=== PATIENT | female | born 1960 | race Caucasian/White ===

== ENCOUNTER → 2019-02-09 16:27 | Outpatient (CLI) | payer OTHER, MEDICAID, SELFPAY ==
[2019-02-09 17:39] LABS: BUN Creatinine Ratio 16.3 (6-22); Blood Urea Nitrogen 13 mg/dL (7-17); Calcium 9.7 mg/dL (8.4-10.2); Carbon Dioxide 29 mmol/L (22-32); Chloride 108 mmol/L (98-107); Estimated Glomerular Filt Rate > 60.0 mL/min (>60); Glucose 78 mg/dL (80-110); HEMOLYSIS < 15 (0-50); Potassium 4.5 mmol/L (3.4-5.1); Sodium 143 mmol/L (137-145)
== END ==
PROVIDERS: Visit Provider Physician Assistant Medical
DX: R74.8 Abnormal levels of other serum enzymes (principal); R10.13 Epigastric pain
CPT/HCPCS: 36415; 80048

== ENCOUNTER → 2019-12-14 09:45 | Outpatient (CLI) | payer OTHER, MEDICAID, SELFPAY ==
--- NOTE | 2019-12-14 | DI.US.S_ITS ---
ULTRASOUND OF RIGHT BREAST AND AXILLA: 12/14/2019 CLINICAL: Patient returns today to evaluate a focal asymmetry in the right breast. Comparison is made to exam dated: 12/14/2019 [facility]. Color flow and real-time ultrasound of the right breast axilla were performed. Fine scale images of the real-time examination were reviewed. There is a 0.8 cm x 1.1 cm x 0.4 cm oval mass with a few angular margins in the right breast at 12 o'clock anterior depth. This oval mass is hypoechoic. This likely correlates with mammography findings. No significant abnormalities were seen sonographically in the right axilla. IMPRESSION: SUSPICIOUS OF MALIGNANCY The 0.8 cm x 1.1 cm x 0.4 cm oval mass in the right breast is at a low suspicion for malignancy. An ultrasound guided biopsy is recommended. Findings and biopsy recommendations were discussed with the patient by Dr. Welch during today's visit. This exam was interpreted at Station ID: [id number]. Electronically Signed By: Ady Chen M.D. at/:12/14/2019 18:28:05 letter sent: Biopsy Required Ultrasound BI-RADS: 4a Low suspicion for malignancy
--- NOTE | 2019-12-14 | DI.MG.S_ITS ---
BILATERAL DIGITAL DIAGNOSTIC MAMMOGRAM 3D/2D: 12/14/2019 CLINICAL: Baseline exam. Breast lump. No prior exams were available for comparison. The tissue of both breasts is predominantly fatty. There is a 0.7 cm irregular equal density focal asymmetry in the right breast at 12 o'clock anterior depth. There is in close proximity to post-surgical scar. There is a 0.7 cm irregular equal density mass with coarse calcifications in the left breast at 12 o'clock middle depth. There also is a 0.7 cm oval focal asymmetry in the left breast at 7 o'clock anterior depth. There are multiple intramammary lymph nodes bilaterally. No other significant masses or calcifications are seen in either breast. IMPRESSION: INCOMPLETE: NEEDS ADDITIONAL IMAGING EVALUATION The 0.7 cm irregular equal density focal asymmetry in the right breast at 12 o'clock anterior depth is indeterminate. An ultrasound is recommended for further evaluation and is scheduled to immediately follow this study. The 0.7 cm irregular equal density mass in the left breast at 12 o'clock middle depth is indeterminate. An ultrasound is recommended for further evaluation and is scheduled to immediately follow this study. The 0.7 cm oval focal asymmetry in the left breast at 7 o'clock anterior depth resembles a cyst, a lymph node, or a fibroadenoma and is indeterminate. An ultrasound is recommended for further evaluation and is scheduled to immediately follow this study. There is no abnormality seen in either breast to correspond with the diffuse intermittent breast pain, however, clinical followup is recommended for persistent or worsening symptoms. This exam was interpreted at Station ID: [id number]. NOTE: For mammograms, a report in lay terms will be sent to the patient. Approximately 15% of breast malignancies will not be visualized mammographically. In the management of a palpable breast mass, a negative mammogram must not discourage biopsy of a clinically suspicious lesion. Electronically Signed By: Ady Chen M.D. aty/:12/14/2019 18:24:51 ACR BI-RADS Category 0: Incomplete [id number]
--- NOTE | 2019-12-14 | DI.US.S_ITS ---
ULTRASOUND OF LEFT BREAST AND AXILLA: 12/14/2019 CLINICAL: Patient returns today to evaluate 2 focal asymmetries in the left breast. Comparison is made to exam dated: 12/14/2019 [facility]. Color flow and real-time ultrasound of the left breast axilla were performed. Fine scale images of the real-time examination were reviewed. There is a 1.1 cm x 0.5 cm x 1 cm wider than tall oval mass with an indistinct a few angular margins in the left breast at 12:30 o'clock middle depth 4 cm from the nipple. This oval mass is hypoechoic. This correlates with mammography findings. There are related calcifications. Color flow imaging demonstrates that there is an adjacent vascularity. There also is a 0.5 cm x 0.6 cm x 0.6 cm wider than tall irregular mass with a few angular margins in the left breast at 9 o'clock anterior depth 4 cm from the nipple. This irregular mass is hypoechoic with posterior acoustic enhancement. Color flow imaging demonstrates that there is no vascularity present. No significant abnormalities were seen sonographically in the left axilla. IMPRESSION: SUSPICIOUS OF MALIGNANCY The 1.1 cm x 0.5 cm x 1 cm wider than tall oval mass in the left breast at 12:30 o'clock middle depth is at a low suspicion for malignancy. An ultrasound guided biopsy is recommended. The 0.5 cm x 0.6 cm x 0.6 cm wider than tall irregular mass in the left breast at 9 o'clock anterior depth is at a low suspicion for malignancy. An ultrasound guided biopsy is recommended. Findings and biopsy recommendations were discussed with the patient by Dr. Welch during today's visit. This exam was interpreted at Station ID: [id number]. Electronically Signed By: Ady Chen M.D. aty/:12/14/2019 18:34:15 letter sent: Biopsy Required Ultrasound BI-RADS: 4a Low suspicion for malignancy
== END ==
PROVIDERS: Referring Provider Physician Assistant Medical; Visit Provider Physician Assistant Medical
DX: R92.8 Other abnormal and inconclusive findings on diagnostic imaging of breast (principal); R92.1 Mammographic calcification found on diagnostic imaging of breast; N63.21 Unspecified lump in the left breast, upper outer quadrant; N63.25 Unspecified lump in the left breast, overlapping quadrants; N63.15 Unspecified lump in the right breast, overlapping quadrants
CPT/HCPCS: 76642; 77066; G0279

== ENCOUNTER → 2020-01-15 11:41 | Outpatient (CLI) | payer OTHER, MEDICAID, SELFPAY ==
--- NOTE | 2020-01-15 | PATH_ITS ---
[facility] Accession Number: [id number] . 01 Material submitted: . PART A: breast - LEFT BREAST MASS 12:30 4 CM FN PART B: breast - LEFT BREAST MASS 9:00 4 CM FN . 02 Diagnosis: A. Left Breast Mass At 12:30, 4 CM From Nipple, Needle Core Biopsy: Benign breast parenchyma with features of fibrocystic change consisting of cystic dilatation of terminal ductules, apocrine metaplasia, ductal hyperplasia without atypia, and patchy stromal fibrosis. Several medium-sized vessels are also present. Negative for atypical glandular hyperplasia, in-situ, or invasive carcinoma. . B. Left Breast Mass At 9 O'Clock, 4 CM From Nipple: Benign breast parenchyma with features of fibrocystic change consisting of cystic dilatation of terminal ductules, apocrine metaplasia, ductal hyperplasia without atypia, and patchy stromal fibrosis. Some tissue fragments demonstrate cyst lining. Negative for atypical glandular hyperplasia, in-situ, or invasive carcinoma. [facility] 01/17/2020 1331 Local . 02 Comment: QA performed by Dr. Posadas. . 02 Electronically signed: . Jocelyn Shelby MD, Pathologist NPI- [id number] . 01 Gross description: . Received two formalin-filled containers, both labeled with the patient's name: . A. In a container labeled #1, designated left breast mass 12:30, 4 cm FN. The specimen is received with a plastic filter in container, sample loose in container and consists of multiple light yellow-arriaga portions of soft tissue which range in size from less than 0.1 cm to 0.5 x 0.3 x 0.2 cm. The specimen is entirely submitted in cassette A. B. In a container labeled #2, designated left breast mass 9:00, 4 cm FM. The specimen is received with a plastic filter in container, sample loose in container and consists of three portions of light yellow-arriaga soft tissue which range in size from 0.2 x 0.2 x 0.2 cm to 1.3 x 0.4 x 0.3 cm. The specimen is entirely submitted in cassette B. . No collection date or time per containers. Possible collection date and time per requisition: 01/15/20 at 1447. Total fixation time: Approximately 12 hours. (DC:[facility] [id number]) /[facility] 01/16/2020 0223 Local . 02 Pathologist provided ICD-10: N60.12, N60.12 . 02 CPT . 602125, [id number] Performed at: 01 [facility] [address] [id number] MD Rik Molina MD Phone: [phone] Performed at: 02 [facility] [address] [place], [place] [id number] MD Cally Posadas MD Phone: [phone]
--- NOTE | 2020-01-15 | DI.US.S_ITS ---
ULTRASOUND GUIDED BIOPSY RIGHT BREAST WITH MARKING DEVICE INSERTED: 01/15/2020 CLINICAL: Right breast mass. PATIENT CONSENT: Risks (minor bleeding, infection, vasovagal reaction and repeat procedure), benefits and alternatives were explained to the patient and written informed consent was obtained. Correlation is made to exams dated: 12/14/2019 ultrasound and 12/14/2019 mammogram [facility]. An ultrasound guided biopsy using real-time ultrasound was performed for the irregular shaped mass located in the right breast at 12 o'clock middle depth. The skin was prepped in the usual manner. Local anesthetic was administered to the access site. The abnormality was approached from the lateral aspect. A biopsy needle was placed adjacent to the abnormality under ultrasound guidance. Once the needle was documented to be in the correct location, a specimen was obtained using an automated biopsy gun. A clip was inserted into the biopsy cavity. The specimen was sent to the laboratory for pathological analysis. IMPRESSION: ULTRASOUND GUIDED BIOPSY BENIGN Ultrasound guided biopsy of the mass in the right breast at 12 o'clock middle depth was successful. Pathology indicates benign adenosis (AD), apocrine metaplasia (AM), fibrocystic changes (FC), cystic dilatation of ductules, and stromal fibrosis. Pathology results are concordant with imaging findings. Return to annual mammogram screening schedule is recommended. This exam was interpreted at Station ID: [id number]. Marcell de la garza,aty/:01/21/2020 17:46:48
--- NOTE | 2020-01-15 | DI.US.S_ITS ---
MULTIPLE ULTRASOUND GUIDED BIOPSIES LEFT BREAST USING VACUUM DEVICE WITH MARKING DEVICES INSERTED: 01/15/2020 CLINICAL: Left breast mass x 2. PATIENT CONSENT: Risks (minor bleeding, infection, vasovagal reaction and repeat procedure), benefits and alternatives were explained to the patient and written informed consent was obtained. Correlation is made to exams dated: 12/14/2019 ultrasound and 12/14/2019 [facility]ogram [facility]. An ultrasound guided biopsy using real-time ultrasound was performed for the mass located in the left breast at 12 o'clock middle depth. The skin was prepped in the usual manner. Local anesthetic was administered to the access site. A small incision was made in the breast. The abnormality was approached from the lateral aspect. A biopsy needle was placed adjacent to the abnormality under ultrasound guidance. Once the needle was documented to be in the correct location, a specimen was obtained using the Mammotome biopsy system. A Vision clip was inserted into the biopsy cavity. The specimen was sent to the laboratory for pathological analysis. A second ultrasound guided biopsy using real-time ultrasound was performed for the cystic mass located in the left breast at 9 o'clock posterior depth. The skin was prepped in the usual manner. Local anesthetic was administered to the access site. The abnormality was approached from the lateral aspect. A biopsy needle was placed adjacent to the abnormality under ultrasound guidance. Once the needle was documented to be in the correct location, a specimen was obtained using the Mammotome biopsy system. A Celero clip was inserted into the biopsy cavity. The specimen was sent to the laboratory for pathological analysis. IMPRESSION: ULTRASOUND GUIDED BIOPSY BENIGN Ultrasound guided biopsy of the mass in the left breast at 12 o'clock middle depth was successful. Pathology indicates benign apocrine metaplasia (AM), usual ductal hyperplasia (DHU), fibrocystic changes (FC), stromal fibrosis, and cystic dilatation of ductules. Pathology results are concordant with imaging findings. Ultrasound guided biopsy of the cystic mass in the left breast at 9 o'clock posterior depth was successful. Pathology indicates benign apocrine metaplasia (AM), usual ductal hyperplasia (DHU), fibrocystic changes (FC), cystic dilatation of ductules, and stromal fibrosis. Pathology results are concordant with imaging findings. Return to annual mammogram screening schedule is recommended. This exam was interpreted at Station ID: [id number]. Marcell de la garza,aty/:01/21/2020 17:44:55
--- NOTE | 2020-01-15 | DI.MG.S_ITS ---
BILATERAL DIGITAL DIAGNOSTIC MAMMOGRAM POST-NEEDLE BIOPSY: 01/15/2020 CLINICAL: Bilateral breast lumps. Comparison is made to exams dated: 12/14/2019 ultrasound, 12/14/2019 ultrasound, and 12/14/2019 mammogram - [facility]. The tissue of both breasts is predominantly fatty. There is a marker clip in the appropriate position in the right breast at 12 o'clock anterior depth. This marker clip placement is at the biopsy site. There is a marker clip in the appropriate position in the left breast at 12 o'clock anterior depth. This marker clip placement is at the biopsy site. There also is a marker clip in the appropriate position in the left breast at 9 o'clock anterior depth. This marker clip placement is at the biopsy site. IMPRESSION: POST PROCEDURE MAMMOGRAM FOR MARKER PLACEMENT There was a successful marker clip placement in the right breast at 12 o'clock anterior depth. There was a successful marker clip placement in the left breast at 12 o'clock anterior depth. There was a successful marker clip placement in the left breast at 9 o'clock anterior depth. This exam was interpreted at Station ID: [id number]. NOTE: For mammograms, a report in lay terms will be sent to the patient. Approximately 15% of breast malignancies will not be visualized mammographically. In the management of a palpable breast mass, a negative mammogram must not discourage biopsy of a clinically suspicious lesion. Electronically Signed By: Marcell de la garza/:01/17/2020 09:19:18 ACR BI-RADS Category Post-procedure mammogram for marker placement
--- NOTE | 2020-01-15 | PATH_ITS ---
[facility] Accession Number: [id number] . 01 Material submitted: . breast - RIGHT BREAST MASS 12:00 RETROAREOLAR . 01 Clinical history: . BILAT BREAST LUMPS . 02 Diagnosis: Right Breast Mass At 12 O'Clock, Retroareolar, Needle Core Biopsy: Benign breast parenchyma with features of fibrocystic change including ductal hyperplasia without atypia, apocrine metaplasia, stromal fibrosis, cystic dilatation of terminal ductules, and adenosis. Negative for in-situ or invasive carcinoma. [facility] 01/18/2020 1504 Local . 02 Comment: As part of routine quality control tech raw materials, this case has been reviewed by Dr. Posadas, who agrees with the diagnosis. . 02 Electronically signed: . Jocelyn Shelby MD, Pathologist NPI- [id number] . 01 Gross description: . Received one formalin-filled container, labeled with the patient's name and designated right breast mass 12 o'clock retroareolar. The specimen is received with a plastic filter in container, sample loose in container and consists of multiple light yellow portions of soft tissue which range in size from 0.3 x 0.3 x 0.2 cm to 1.5 x 0.4 x 0.4 cm. The specimen is entirely submitted in one cassette. No collection date or time per container. Possible date and time per requisition: 01/15/20 at 1447. Total fixation time: Approximately 12 hours. ([id number]) /[facility] 01/16/2020 0216 Local . 02 Microscopic: . An immunohistochemical stain for p63 is performed on block A1 to evaluate for block reactivity and is positive in regions of interest. The control stained with appropriate reactivity. . An immunohistochemical stain for myosin is performed on block A1 to evaluate for block reactivity and is positive in regions of interest. The control stained with appropriate reactivity. . The presence of both p63 and smooth muscle myosin in the regions of interest mitigates against the presence of invasive carcinoma at this focus. . * This test was developed and its performance characteristics determined by [facility]. It has not been cleared or approved by the U.S. Food and Drug Administration. The FDA has determined that such clearance or approval is not necessary. This test is used for clinical purposes. It should not be regarded as investigational or for research. . . . . 02 Pathologist provided ICD-10: N60.11 . 02 CPT . 980201, Q20644, [id number] Performed at: 01 [facility] [address] [facility], [place], [place] [id number] MD Rik Molina MD Phone: [phone] Performed at: 02 [facility] [address] [place], [place] [id number] MD Cally Posadas MD Phone: [phone]
== END ==
PROVIDERS: Referring Provider Physician Assistant Medical; Visit Provider Physician Assistant Medical
DX: N60.21 Fibroadenosis of right breast (principal); N60.82 Other benign mammary dysplasias of left breast; N60.81 Other benign mammary dysplasias of right breast; N60.32 Fibrosclerosis of left breast; N60.31 Fibrosclerosis of right breast
CPT/HCPCS: 19083; 19084; 77066

== ENCOUNTER → 2021-01-08 14:33 | Outpatient (CLI) | payer OTHER, MEDICAID, SELFPAY ==
--- NOTE | 2021-01-08 | DI.CT.S_ITS ---
PROCEDURE: CT ABDOMEN PELVIS W CON INDICATIONS: unspecified abdominal pain TECHNIQUE: After the administration of oral and intravenous contrast, 5 mm thick sections acquired from the diaphragms to the symphysis. 5 mm thick coronal and sagittal reformats were performed. For radiation dose reduction, the following was used: automated exposure control, adjustment of mA and/or kV according to patient size. COMPARISON: None. FINDINGS: Image quality: Excellent. ABDOMEN: Lung bases: Lung bases are clear. Heart size is normal. Solid organs: Liver is normal in size and enhancement. Gallbladder is surgically absent. Biliary system is non-dilated. Pancreas enhances normally. Spleen is normal in size and enhancement. Subcentimeter heterogeneous low-density nodule arising from the medial limb of the left adrenal gland, 9 mm in diameter. Kidneys are normal in size and enhancement, without hydronephrosis. Peritoneum and bowel: Numerous diverticula in the distal descending and sigmoid colon with mild circumferential wall thickening. There is no acute pericolonic inflammation. A few of these diverticula are impacted with high-density material. Normal appendix. Stomach, small bowel, and colon loops are otherwise normal in caliber and wall thickness. No free fluid or air. Nodes and vessels: No retroperitoneal or mesenteric adenopathy. Aorta and inferior vena cava are normal in caliber. Mild abdominal aortic atherosclerotic calcification. Miscellaneous: No ventral hernias. PELVIS: Genitourinary: Bladder wall thickness is normal. The uterus is absent. Miscellaneous: No inguinal hernias or adenopathy. Bones: No suspicious bony lesions. No vertebral body compression fractures. Lumbar spine disc and facet degeneration. IMPRESSION: 1. Changes of chronic recurrent distal descending and sigmoid diverticulitis without acute diverticulitis present. 2. Subcentimeter left adrenal nodule too small to characterize, likely an adenoma. 1 year follow-up is recommended. 3. Cholecystectomy and hysterectomy. Dictated by: Lilia Bolton M.D. on 01/09/2021 at 9:00 Approved by: Lilia Bolton M.D. on 01/09/2021 at 9:16
[2021-01-08 15:49] LABS: BUN Creatinine Ratio 30.5 (6-22); Blood Urea Nitrogen 29 mg/dL (7-17); Calcium 9.4 mg/dL (8.4-10.2); Carbon Dioxide 28 mmol/L (22-32); Chloride 106 mmol/L (98-107); Estimated Glomerular Filt Rate 59.6 mL/min (>60); Glucose 92 mg/dL (80-110); HEMOLYSIS < 15 (0-50); Potassium 4.6 mmol/L (3.4-5.1); Sodium 140 mmol/L (137-145)
== END ==
PROVIDERS: PCP Family Medicine; Referring Provider Physician Assistant Medical; Visit Provider Physician Assistant Medical
DX: R10.9 Unspecified abdominal pain (principal); R30.0 Dysuria; K57.32 Diverticulitis of large intestine without perforation or abscess without bleeding; E27.9 Disorder of adrenal gland, unspecified; Z90.49 Acquired absence of other specified parts of digestive tract; Z90.710 Acquired absence of both cervix and uterus
CPT/HCPCS: 36415; 74177; 80048

== ENCOUNTER 2021-05-07 16:02 | Emergency (ER) | payer OTHER, MEDICAID, SELFPAY ==
[2021-05-07 16:08] VITALS: BP 108/63; PULSE 96; RESP 14; TEMP 36.4; O2SAT 97; BMI 23.1
--- NOTE | 2021-05-07 18:11 | ED.SKABFB ---
HPI - Skin/Abscess/Foreign Bdy <Luis Sainz PA-C - Last Filed: 05/07/21 18:41> General Chief complaint: Skin/Abscess/Foreign Body Stated complaint: Stabbed With Oxi Tank, Left Leg Time Seen by Provider: 05/07/21 16:14 Source: patient Mode of arrival: Ambulatory Limitations: no limitations History of Present Illness HPI narrative: Jennifer presents today with chief complaint of wound to her left calf that she sustained 1 week ago. She was at work when an oxygen tank fell over and stabbed into her left leg. She went to the emergency department the following day and was bandaged. She was put on some antibiotics 2 days later and has been taking them as prescribed. She denies any significant spreading redness, fever, difficulty walking or any other acute concerns or complaints at this time. She is here for wound check. Related Data Previous Rx's Medication Instructions Recorded tramadol 50 mg tablet 50 mg PO Q6HP PRN #20 tab 09/15/17 Allergies Allergy/AdvReac Type Severity Reaction Status Date / Time codeine [CODEINE] Allergy Unknown Verified 05/07/21 16:10 Sulfa (Sulfonamide Allergy Unknown Verified 05/07/21 16:10 Antibiotics) [SULFA (SULFONAMIDE ANTIBIOTICS)] Review of Systems <Luis Sainz PA-C - Last Filed: 05/07/21 18:41> Review of Systems Narrative: As per HPI Patient History <Luis Sainz PA-C - Last Filed: 05/07/21 18:41> Social History Smoking Status: Current every day smoker Smoking Status: Current every day smoker alcohol intake frequency: other Substance Use Type: does not use Exam <Luis Sainz PA-C - Last Filed: 05/07/21 18:41> Narrative Exam Narrative: Exam Narrative: Const General: cooperative, healthy appearing, comfortable, no acute distress, well developed and well groomed Nutritional Appearance: average body habitus Orientation: alert and oriented x3 HENMT Head: normal to inspection and atraumatic Ears: hearing grossly normal bilaterally Nose: external nose normal and nares normal Face and sinus: normal facial exam Neck Neck: normal visual inspection and supple Resp Effort & Inspection: normal respiratory effort, able to speak in complete sentences, no audible wheezes, not labored, no nasal flaring and no respiratory distress Skin Scab noted with surrounding bruising to left lateral calf. No significant surrounding tenderness with palpation. No discharge noted. No significant erythema or warmth. No bony tenderness noted. Neuro General: alert, oriented x3, gait normal, tone normal and moves all extremities Cognition: normal cognition Speech: speech normal Gait: normal gait Psych Appearance: grossly normal and well kempt Mental Status: mental status grossly normal Speech and Movement: speech and movement normal Mood: congruent mood Affect: normal affect Initial Vital Signs Initial Vital Signs: Vital Signs Temperature 97.5 F L 05/07/21 16:08 Pulse Rate 96 H 05/07/21 16:08 Respiratory Rate 14 05/07/21 16:08 Blood Pressure 108/63 05/07/21 16:08 Pulse Oximetry 97 05/07/21 16:08 <Guille Little DO - Last Filed: 05/08/21 04:24> Initial Vital Signs Initial Vital Signs: Vital Signs Temperature 97.5 F L 05/07/21 16:08 Pulse Rate 96 H 05/07/21 16:08 Respiratory Rate 14 05/07/21 16:08 Blood Pressure 108/63 05/07/21 16:08 Pulse Oximetry 97 05/07/21 16:08 Course <Luis Sainz PA-C - Last Filed: 05/07/21 18:41> Vital Signs Vital signs: Vital Signs - 8 hr 05/07/21 16:08 Temperature 97.5 F L Pulse Rate 96 H Respiratory Rate 14 Blood Pressure 108/63 Pulse Oximetry 97 <Guille Little DO - Last Filed: 05/08/21 04:24> Vital Signs Vital signs: Vital Signs - 8 hr 05/07/21 16:08 Temperature 97.5 F L Pulse Rate 96 H Respiratory Rate 14 Blood Pressure 108/63 Pulse Oximetry 97 Discharge Plan Departure Patient Disposition: Home Clinical Impression: Puncture wound of left lower leg Qualifiers: Encounter type: subsequent encounter Qualified Code(s): S81.832D - Puncture wound without foreign body, left lower leg, subsequent encounter Instructions: DI for Wound Infection Activity Restrictions/Additional Instructions: Wound appears to be healing well at this time. Recommend continuing antibiotics as instructed. Please follow-up with your PCP if you continue to have discomfort in this area. If you notice fever, spreading redness, significant increased pain, or have any other acute concerns or complaints please return for re-evaluation. Thank you Luis Sainz PA-C Prescriptions: No Action tramadol 50 MG tablet 50 mg PO Q6HP PRNQty: 20 RF: 0 Referrals: Garett An MD [Primary Care Provider] - Stand Alone Forms: Work Release Note <Guille Little DO - Last Filed: 05/08/21 04:24> Cosign ED Attending Dustinature Attestation: I was immediately available in the department for consultation. This documentation has been reviewed and I agree with assessment and plan. Supervised by Guille Little DO
[2021-05-07 18:51] VITALS: BP 115/55; PULSE 87; O2SAT 97
== END 2021-05-07 18:56 | disposition home or self-care (01) ==
PROVIDERS: Emergency Provider Physician Assistant; PCP Family Medicine
DX: S81.832D Puncture wound without foreign body, left lower leg, subsequent encounter (principal); W26.8XXA Contact with other sharp object(s), not elsewhere classified, initial encounter; Y99.0 Civilian activity done for income or pay
CPT/HCPCS: 99281

== ENCOUNTER → 2022-02-03 14:07 | Outpatient (CLI) | payer OTHER, MEDICAID, SELFPAY ==
--- NOTE | 2022-02-03 14:11 | DI.MG.S_ITS ---
BILATERAL DIGITAL SCREENING MAMMOGRAM 3D/2D WITH CAD: 02/03/2022 CLINICAL: Routine screening. Family history of breast cancer. Comparison is made to exams dated: 01/15/2020 ultrasound biopsy, 01/15/2020 mammogram, and 12/14/2019 mammogram - [facility]. There are scattered fibroglandular elements in both breasts. Current study was also evaluated with a Computer Aided Detection (CAD) system. No significant masses, calcifications, or other findings are seen in either breast. There has been no significant interval change. IMPRESSION: NEGATIVE There is no mammographic evidence of malignancy. A 1 year screening mammogram is recommended. This exam was interpreted at Station ID: [id number]. NOTE: For mammograms, a report in lay terms will be sent to the patient. Approximately 15% of breast malignancies will not be visualized mammographically. In the management of a palpable breast mass, a negative mammogram must not discourage biopsy of a clinically suspicious lesion. Electronically Signed By: Isac Kwok M.D., [email or web address]:02/03/2022 14:28:40 letter sent: Normal Exam ACR BI-RADS Category 1: Negative 3341F
== END ==
PROVIDERS: PCP Family Medicine; Referring Provider Nurse Practitioner; Visit Provider Nurse Practitioner
DX: Z12.31 Encounter for screening mammogram for malignant neoplasm of breast (principal); Z80.3 Family history of malignant neoplasm of breast
CPT/HCPCS: 77063; 77067

== ENCOUNTER 2023-02-02 18:05 | Emergency (ER) | payer OTHER, MEDICAID, SELFPAY ==
[2023-02-02] VITALS (10 sets, daily range): BP systolic 85–114; BP diastolic 54–76; PULSE 73–86; RESP 16–29; TEMP 36.4; O2SAT 93–97; BMI 25.7
[2023-02-02 18:52] LABS: Add Manual Diff / Slide Review NO; Basophils Absolute Auto 100 /uL (0-100); Basophils Percent Auto 0.9 % (0-2); Eosinophils Absolute Auto 200 /uL (0-450); Eosinophils Percent Auto 2.5 % (2-4); Hematocrit 40.5 % (36-46); Hemoglobin 14.1 g/dL (12.0-16.0); Lymphocytes Absolute Auto 2500 /uL (1100-4500); Lymphocytes Percent Auto 33.3 % (25-40); Mean Corpuscular HGB Conc 34.9 % (30-36); Mean Corpuscular Hemoglobin 33.6 PG (26-34); Mean Corpuscular Volume 96.2 fL (80-100); Monocytes Absolute Auto 500 /uL (0-900); Monocytes Percent Auto 6.9 % (3-14); Neutrophils Absolute Auto 4300 /uL (1500-7000); Neutrophils Percent Auto 56.4 % (50-75); Platelet Count 197 X10^3/uL (150-400); Red Blood Cell Count 4.21 X10^6/uL (4.0-5.2); Red Cell Distribution Width 13.7 % (11.6-14.8); White Blood Cell Count 7.5 X10^3/uL (4.5-11.0)
--- NOTE | 2023-02-02 18:56 | ED_ITS ---
HPI - General Adult General Chief complaint: Abdominal Pain Stated complaint: abd bloating/cramps Time Seen by Provider: 02/02/23 18:52 Source: patient Mode of arrival: Ambulatory History of Present Illness HPI narrative: Patient is a 62-year-old female who has a known history of alcohol abuse. She states she now has been sober for the past couple months. She knows that she is had issues with her liver in the past. She states she is here because she is having abdominal bloating. She was told by her doctor that she may need to have fluid drained off of her abdomen. She states she is also having nausea and vomiting and diarrhea. This has been worsening over the past couple months. She is also having cramping in her hands and legs. Denies fevers. Related Data Previous Rx's Medication Instructions Recorded tramadol 50 mg tablet 50 mg PO Q6HP PRN #20 tabs 09/15/17 ciprofloxacin HCl 500 mg tablet 500 mg PO BID 10 days #20 tabs 02/02/23 (Cipro) metronidazole 500 mg tablet 500 mg PO TID 10 days #30 tabs 02/02/23 Allergies Allergy/AdvReac Type Severity Reaction Status Date / Time codeine [CODEINE] Allergy Unknown Verified 05/07/21 16:10 Sulfa (Sulfonamide Allergy Unknown Verified 05/07/21 16:10 Antibiotics) [SULFA (SULFONAMIDE ANTIBIOTICS)] Review of Systems Review of Systems ROS Unobtainable: All systems reviewed & are unremarkable except as noted in HPI and below Patient History Social History Smoking Status: Current every day smoker Smoking Status: Current every day smoker alcohol intake frequency: other Substance Use Type: does not use Exam Initial Vital Signs Initial Vital Signs: Vital Signs Temperature 97.5 F L 02/02/23 18:07 Pulse Rate 86 02/02/23 18:07 Respiratory Rate 16 02/02/23 18:07 Blood Pressure 114/68 02/02/23 18:07 Pulse Oximetry 94 02/02/23 18:07 Oxygen Delivery Method Room Air 02/02/23 18:07 Const General: cooperative and comfortable HENMT Head: normal to inspection and normocephalic Resp Effort & Inspection: normal respiratory effort Auscultation: clear to auscultation bilaterally Cardio Rate: regular rate Rhythm: regular rhythm GI Inspection: normal to inspection and non-distended Palpation: No firm, No guarding, No rigid and tender Skin General: no rashes or lesions noted Neuro General: patient alert, patient awake and moves all extremities Extrem General: normal to inspection and capillary refill normal Course Orders Ordered: ED Orders 02/02/23 18:57 CT abdomen pelvis w con Stat 02/02/23 19:04 EKG-12 Lead Stat Discontinued Medications Hydrocodone Bitart/Acetaminophen (Hydrocodone/Acet 5/325 Tablet) 1 tab PO NOW ONE Stop: 02/02/23 20:05 Last Admin: 02/02/23 20:14 Dose: 1 tab Documented By: Hydrocodone Bitart/Acetaminophen (Hydrocodone/Acet 5/325 Prepack) 1 bottle MISC SEEINSTR ONE Stop: 02/02/23 20:52 Last Admin: 02/02/23 21:10 Dose: 1 bottle Documented By: Ciprofloxacin (Ciprofloxacin 250 Mg Tablet) 500 mg PO NOW ONE Stop: 02/02/23 20:52 Last Admin: 02/02/23 21:10 Dose: 500 mg Documented By: Sodium Chloride (Normal Saline 0.9%) 1,000 mls @ 1,000 mls/hr IV BOLUS ONE Stop: 02/02/23 20:11 Last Infusion: 02/02/23 20:20 Dose: 0 mls/hr Documented By: Admin: 02/02/23 19:53 Dose: 1,000 mls/hr Documented By: Metronidazole (Metronidazole 500 Mg Tablet) 500 mg PO NOW ONE Stop: 02/02/23 20:52 Last Admin: 02/02/23 21:09 Dose: 500 mg Documented By: Ondansetron HCl (Ondansetron 4 Mg Odt) 4 mg PO NOW PRN PRN Reason: Nausea And Vomiting Ondansetron HCl (Ondansetron 4 Mg/2 Ml Inj) 4 mg IV NOW PRN PRN Reason: Nausea And Vomiting Ondansetron HCl (Ondansetron 4 Mg Odt Prepack) 1 bottle MISC SEEINSTR ONE Stop: 02/02/23 20:52 Last Admin: 02/02/23 21:10 Dose: 1 bottle Documented By: Vital Signs Vital signs: Vital Signs - 8 hr 02/02/23 20:00 02/02/23 20:30 02/02/23 21:00 Pulse Rate 75 73 73 Respiratory Rate 20 19 29 H Blood Pressure Pulse Oximetry 97 97 96 Oxygen Delivery Method 02/02/23 21:10 02/02/23 21:10 02/02/23 21:24 Pulse Rate 76 Respiratory Rate 24 Blood Pressure 97/76 Pulse Oximetry 96 Oxygen Delivery Method Room Air Medical Decision Making Lab Data Lab results reviewed: Yes I reviewed the patient's lab results. 02/02/23 18:39 02/02/23 18:39 Labs: Lab Results 02/02/23 02/02/23 02/02/23 Range/Units 18:39 18:39 18:46 WBC 7.5 (4.5-11.0) X10^3/uL RBC 4.21 (4.0-5.2) X10^6/uL Hgb 14.1 (12.0-16.0) g/dL Hct 40.5 (36-46) % MCV 96.2 (80-100) fL MCH 33.6 (26-34) PG MCHC 34.9 (30-36) % RDW 13.7 (11.6-14.8) % Plt Count 197 (150-400) X10^3/uL Neut % (Auto) 56.4 (50-75) % Lymph % (Auto) 33.3 (25-40) % [place] % (Auto) 6.9 (3-14) % Eos % (Auto) 2.5 (2-4) % Baso % (Auto) 0.9 (0-2) % Neut # (Auto) 4300 (2255-1106) /uL Lymph # (Auto) 2500 (2248-5751) /uL [place] # (Auto) 500 (0-900) /uL Eos # (Auto) 200 (0-450) /uL Baso # (Auto) 100 (0-100) /uL Sodium 136 L (137-145) mmol/L Potassium 4.5 (3.4-5.1) mmol/L Chloride 100 (98-107) mmol/L Carbon Dioxide 24 (22-32) mmol/L BUN 23 H (7-17) mg/dL Creatinine 1.46 H (0.52-1.04) mg/dL Estimated GFR 40 L (>60) mL/min BUN/Creatinine Ratio 15.8 (6-22) Glucose 107 (80-110) mg/dL Calcium 9.8 (8.4-10.2) mg/dL Phosphorus 5.0 H (2.8-4.1) mg/dL Magnesium 2.1 (1.6-2.3) mg/dL Total Bilirubin 0.7 (0.2-1.3) mg/dL AST 37 H (14-36) IU/L ALT 32 (<35) IU/L Alkaline Phosphatase 100 (38-126) U/L Total Protein 8.7 H (6.3-8.2) g/dL Albumin 5.0 (3.5-5.0) g/dL Globulin 3.7 (1.7-4.1) g/dL Albumin/Globulin Ratio 1.4 (1.0-2.8) Lipase 179 (23-300) U/L Urine Dip Bedside Urine Glucose Negative Bedside Urine Bilirubin - Negative Bedside Urine Ketone - Negative Urine Specific [place] 1.020 Bedside Urine Occult Blood - Negative Bedside Urine pH 6.0 Bedside Urine Protein +/- 15 Bedside Urine Urobilinogen - Negative Bedside Urine Nitrite - Negative Bedside Urine Leukocytes - Negative Esterase Point of care testing: Urine Dip Bedside Urine Glucose Negative Bedside Urine Bilirubin - Negative Bedside Urine Ketone - Negative Urine Specific [place] 1.020 Bedside Urine Occult Blood - Negative Bedside Urine pH 6.0 Bedside Urine Protein +/- 15 Bedside Urine Urobilinogen - Negative Bedside Urine Nitrite - Negative Bedside Urine Leukocytes - Negative Esterase Imaging Data CT scan - abdomen/pelvis: Radiologist's Impression: PROCEDURE:? CT ABDOMEN PELVIS W CON ? INDICATIONS:? Generalized abdominal pain and bloating ? TECHNIQUE:? After the administration of intravenous contrast, axial sections acquired from the lung bases to the pubic symphysis.? Coronal and sagittal reformats were performed.? For radiation dose reduction, the following was used:? automated exposure control, adjustment of mA and/or kV according to patient size.? ? COMPARISON:? [facility], CT, CT ABDOMEN PELVIS W CON, 01/08/2021, 16:04. ? FINDINGS:? Image quality:? Excellent.? ? Lung bases:? Unremarkable. Heart:? No significant findings. ? ABDOMEN: Liver:? No suspicious masses. Gallbladder:? Surgically absent. Biliary ducts:? Nondilated. Pancreas:? Normal. Spleen:? Normal size.? Splenule in the hilum. Adrenal Glands:? Normal. Kidneys and Ureters: Symmetric enhancement.? No nephrolithiasis or hydronephrosis.? No hydroureter. ? Stomach and Bowel:? There is spasm of the entire sigmoid colon which demonstrates diffuse wall thickening.? No significant pericolonic inflammation.? Diverticula present in the descending colon.? There is no evidence of small or large bowel distension.? The stomach is decompressed.? The appendix is normal. Peritoneum:? No abnormal intraperitoneal fluid.? No free air.? ? Ventral Wall:? Probably surgical absence of a portion of the right rectus muscle.? No hernias. Abdominal Nodes:? No retroperitoneal or mesenteric adenopathy by size criteria.? Vessels:? Aorta and inferior vena cava are normal in size.? Moderate abdominal aortic atherosclerotic calcification.? ? PELVIS:? Delete Pelvic Organs:? The uterus is absent.? There is mild pelvic floor prolapse.? Bladder:? Decompressed. Pelvic Nodes: No enlarged lymph nodes.? Miscellaneous: No hernias are seen. ? ? ? Bones:? Possible surgical absence of a portion of the right iliac crest. ? ? IMPRESSION:? ? 1. There is extensive sigmoid diverticulosis with wall thickening.? This may indicate early diverticulitis or chronic diverticulitis.? No evidence of acute obstruction.? Correlate clinically.? ECG Data Attestation: I personally reviewed and interpreted this ECG as follows: Interpretation: Sinus rhythm Ventricular rate is 78 Normal axis Left bundle branch block No ST T wave changes MDM Narrative Medical decision making narrative: Bedside ultrasound showed no ascites. Labs were relatively unremarkable. CT scan of the abdomen is consistent with diverticulitis which very well could be causing the symptoms that she presented with today. Because of this we will treat her with antibiotics. She was given 1st dose here in the emergency department a prescription was sent to pharmacy of her choice. No indication for admission to the hospital. No indication for surgical consultation. She was given return precautions follow-up instructions. She expressed understanding and agreement. Discharge Plan Departure Patient Disposition: Home Clinical Impression: Diverticulitis, Abdominal pain Instructions: DI for Diverticulitis Activity Restrictions/Additional Instructions: Recommend that you take all of the medications as directed. Keep all of your scheduled medical appointments. Return to the emergency department for new or worsening symptoms. Prescriptions: New ciprofloxacin HCl [Cipro] 500 mg tablet 500 mg PO BID 10 Days Qty: 20 0RF metronidazole 500 mg tablet 500 mg PO TID 10 Days Qty: 30 0RF No Action tramadol 50 MG tablet 50 mg PO Q6HP PRNQty: 20 0RF Referrals: Garett An MD [Primary Care Provider] - Stand Alone Forms: Patient Portal/API
--- NOTE | 2023-02-02 18:57 | DI.CT.S_ITS ---
PROCEDURE: CT ABDOMEN PELVIS W CON INDICATIONS: Generalized abdominal pain and bloating TECHNIQUE: After the administration of intravenous contrast, axial sections acquired from the lung bases to the pubic symphysis. Coronal and sagittal reformats were performed. For radiation dose reduction, the following was used: automated exposure control, adjustment of mA and/or kV according to patient size. COMPARISON: [facility], CT, CT ABDOMEN PELVIS W CON, 01/08/2021, 16:04. FINDINGS: Image quality: Excellent. Lung bases: Unremarkable. Heart: No significant findings. ABDOMEN: Liver: No suspicious masses. Gallbladder: Surgically absent. Biliary ducts: Nondilated. Pancreas: Normal. Spleen: Normal size. Splenule in the hilum. Adrenal Glands: Normal. Kidneys and Ureters: Symmetric enhancement. No nephrolithiasis or hydronephrosis. No hydroureter. Stomach and Bowel: There is spasm of the entire sigmoid colon which demonstrates diffuse wall thickening. No significant pericolonic inflammation. Diverticula present in the descending colon. There is no evidence of small or large bowel distension. The stomach is decompressed. The appendix is normal. Peritoneum: No abnormal intraperitoneal fluid. No free air. Ventral Wall: Probably surgical absence of a portion of the right rectus muscle. No hernias. Abdominal Nodes: No retroperitoneal or mesenteric adenopathy by size criteria. Vessels: Aorta and inferior vena cava are normal in size. Moderate abdominal aortic atherosclerotic calcification. PELVIS: Delete Pelvic Organs: The uterus is absent. There is mild pelvic floor prolapse. Bladder: Decompressed. Pelvic Nodes: No enlarged lymph nodes. Miscellaneous: No hernias are seen. Bones: Possible surgical absence of a portion of the right iliac crest. IMPRESSION: 1. There is extensive sigmoid diverticulosis with wall thickening. This may indicate early diverticulitis or chronic diverticulitis. No evidence of acute obstruction. Correlate clinically. Dictated by: Lilia Bolton M.D. on 02/02/2023 at 19:58 Approved by: Lilia Bolton M.D. on 02/02/2023 at 20:06
[2023-02-02 19:23] LABS: Alanine Aminotransferase 32 IU/L (<35); Albumin Globulin Ratio 1.4 (1.0-2.8); Alkaline Phosphatase 100 U/L (38-126); Aspartate Aminotransferase 37 IU/L (14-36); BUN Creatinine Ratio 15.8 (6-22); Bilirubin Total 0.7 mg/dL (0.2-1.3); Blood Urea Nitrogen 23 mg/dL (7-17); Calcium 9.8 mg/dL (8.4-10.2); Carbon Dioxide 24 mmol/L (22-32); Chloride 100 mmol/L (98-107); Estimated Glomerular Filt Rate 40 mL/min (>60); Globulin 3.7 g/dL (1.7-4.1); Glucose 107 mg/dL (80-110); HEMOLYSIS < 15 (0-50); Lipase 179 U/L (23-300); Potassium 4.5 mmol/L (3.4-5.1); Sodium 136 mmol/L (137-145); Total Protein 8.7 g/dL (6.3-8.2)
[2023-02-02 19:24] LABS: Magnesium 2.1 mg/dL (1.6-2.3)
[2023-02-02] MEDS: SODIUM CHLORIDE 0.9% 1,000 ML 1000 ML IV (19:53)
[2023-02-02] MEDS: HYDROCODONE/ACET 5/325 TABLET 1 TAB PO (20:14)
[2023-02-02] MEDS: metroNIDAZOLE 500 MG TABLET PO (21:09)
[2023-02-02] MEDS: ONDANSETRON 4 MG ODT PREPACK 1 BOTTLE MISC (21:10)
[2023-02-02] MEDS: CIPROFLOXACIN 250 MG TABLET 500 MG PO (21:10)
[2023-02-02] MEDS: HYDROCODONE/ACET 5/325 PREPACK 1 BOTTLE MISC (21:10)
== END 2023-02-02 21:24 | disposition home or self-care (01) ==
PROVIDERS: Emergency Provider Emergency Medicine; PCP Family Medicine
DX: K57.92 Diverticulitis of intestine, part unspecified, without perforation or abscess without bleeding (principal); R10.84 Generalized abdominal pain
CPT/HCPCS: 36415; 74177; 80053; 81003; 83690; 83735; 84100; 85025; 93005; 99284; Q9967